=== PATIENT | male | born 2000 | race American Indian/Alaskan Native ===

== ENCOUNTER 2021-01-19 03:34 | Emergency (ER) | payer BC ==
--- NOTE | 2021-01-19 06:50 | Emergency Department Report ---
Earache (Pediatric) - HPI Chief Complaint: Earache Stated Complaint: RT EARACHE Time Seen by Provider: 01/19/21 06:44 Duration: 2 Days Location: Right Severity: Moderate Symptoms: Yes History of Moisture in Ear, No URI, No Sore Throat, No Trauma to EAC, No Fever, No Vomiting, No Cough, No Shortness of Breath Other History: 20-year-old little dull throbbing pain to the right ear with clear drainage. No odynophagia or dysphagia ED Review of Systems ROS: Stated complaint: RT EARACHE Other details as noted in HPI Comment: All other systems reviewed and negative Peds Earache exam - Exam General: Vital signs noted. No distress. Alert and acting appropriately. HEENT: No Pharyngeal Erythema, No Pharyngeal Exudates, No Moist Mucous Membranes, No Rhinorrhea, No Conjuctival Injection, No Frontal Tenderness, No Maxillary Tenderness Ear: Right TM Erythema, Right EAC Pain, Right EAC Discharge, Neither TM Bulge, Neither Cerumen Impaction Peds Neck exam: Adenopathy: No, Supple: Yes Peds Lung exam: Good Air Exchange: Yes, Wheezes: No, Stridor: No, Cough: No, Nasal Flaring: No, Retractions: No, Use of Accessory Muscles: No Heart: Yes Regular, No Murmur Peds abdomen: Abdominal Tenderness: No, Peritoneal Signs: No, Normal Bowel Sounds: Yes, Distention: No Peds Skin Exam: Rash: No, Eczema: No Neurologic: Alert and oriented, no deficits. Musculoskeletal: Unremarkable. Critical care attestation.: If time is entered above; I have spent that time in minutes in the direct care of this critically ill patient, excluding procedure time. ED Disposition Clinical Impression: Otitis externa Disposition: DC- TO HOME OR SELFCARE Is pt being admited?: No Does the pt Need Aspirin: No Condition: Stable Instructions: Ear Drops, Adult Prescriptions: Ciprofloxacin HCl/Dexameth [Ciprodex Otic Suspension] 2 drop AD BID 7 Days #7.5 ml Referrals: PRIMARY CARE, [Primary Care Provider] - 3-5 Days [facility] [Provider Group] - 3-5 Days
[2021-01-19 07:32] VITALS: BP 148/85
== END 2021-01-19 07:32 | disposition home or self-care (01) ==
LOC: ED 03:34
DX: H60.91 Unspecified otitis externa, right ear (principal); H92.01 Otalgia, right ear
CPT/HCPCS: 99281; 99282